=== PATIENT | male | born 1950 | race Caucasian/White ===

== ENCOUNTER 2020-02-23 08:46 | Inpatient (IN) ==
[2020-02-23] MEDS ORDERED: Tdap (Boostrix) Vaccine 0.5 ML SYRINGE IM ONE (09:01)
[2020-02-23] MEDS ORDERED: Lidocaine/EPI 1:100k 1% 30 ML VIAL INFILT ONE (12:05)
[2020-02-23 15:28] LABS: Basophils % 0.2 %; Hematocrit 36.9 % (37.5-50.1); Hemoglobin 11.3 g/dL (12.9-16.9); Immature Granulocytes % 0.3 % (0-4); Lymphocytes # 0.9 K/mcL (0.6-4.6); Lymphocytes % 8.1 %; Mean Corpuscular HGB Conc 30.6 g/dL (31.6-35.5); Mean Corpuscular Volume 88.1 fL (83.0-100.0); Mean Platelet Volume 9.3 fL (9.4-12.4); Monocytes # 1.1 K/mcL (0.0-1.3); Monocytes % 9.3 %; Neutrophils # 9.4 K/mcL (1.6-8.9); Platelet Count 394 K/mcL (140-400); Red Blood Count 4.19 M/mcL (4.19-5.50); Segmented Neutrophils % 82.1 %; White Blood Count 11.4 K/mcL (4.3-11.1)
[2020-02-23 15:46] LABS: Calcium 9.2 mg/dL (8.6-10.3); Potassium 3.9 mEq/L (3.5-5.1)
[2020-02-23] MEDS ORDERED: CeFAZolin 2 GM/120 ML BAG IVPB ONE (16:05)
[2020-02-23 16:23] LABS: Albumin 4.1 g/dL (3.5-5.7); Albumin/Globulin Ratio 1.5 (1.1-2.2); Bilirubin,Direct 0.1 mg/dL (0.0-0.2); Bilirubin,Indirect 0.6 mg/dL (0.0-1.0); Bilirubin,Total 0.7 mg/dL (0.3-1.0); Globulin 2.8 g/dL (2.4-3.5); Total Protein 6.9 g/dL (6.4-8.9)
[2020-02-23] MEDS: 0.9 % Sodium Chloride 1,000 ML IVC SCH (17:32)
[2020-02-23] MEDS ORDERED: Acetaminophen 325 MG TABLET PO ONE (23:13)
[2020-02-24] MEDS ORDERED: Acetaminophen 325 MG TABLET PO PRN (01:10)
[2020-02-24] MEDS ORDERED: Ondansetron 4 MG/2 ML VIAL IVP PRN (01:10)
[2020-02-24] MEDS ORDERED: Naloxone 0.4 MG/ML INJ IVP PRN (01:10)
[2020-02-24] MEDS: Famotidine 20 MG TABLET PO SCH ×2 (01:41→08:36)
[2020-02-24] MEDS: 0.9 % Sodium Chloride 1,000 ML IVC SCH ×2 (04:13→21:36)
[2020-02-24 07:37] LABS: Hematocrit 31.4 % (37.5-50.1); Mean Corpuscular HGB Conc 30.9 g/dL (31.6-35.5); Mean Corpuscular Hemoglobin 26.9 pg (28.0-33.3); Mean Platelet Volume 9.5 fL (9.4-12.4); Platelet Count 322 K/mcL (140-400); Red Blood Count 3.61 M/mcL (4.19-5.50); Red Cell Distribution Width 20.8 % (11.5-14.5); White Blood Count 9.1 K/mcL (4.3-11.1)
[2020-02-24 07:46] LABS: Hemoglobin 9.7 g/dL (12.9-16.9)
[2020-02-24 07:52] LABS: Calcium 8.1 mg/dL (8.6-10.3); Magnesium 1.3 mg/dL (1.6-2.6); Potassium 3.7 mEq/L (3.5-5.1)
[2020-02-24] MEDS: clonazePAM 0.5 MG TABLET PO SCH (08:34)
[2020-02-24] MEDS: Loratadine 10 MG TABLET PO SCH (08:36)
[2020-02-24] MEDS ORDERED: Metoprolol XL (24 HR) Succ 25 MG TAB.ER.24H PO SCH (09:00)
[2020-02-24] MEDS ORDERED: lisinopriL 20 MG TABLET PO SCH (09:00)
[2020-02-24 10:54] LABS: Amorphous Sediment,Urine Few per hpf (None-Few); Bilirubin,Urine Negative (Negative); Blood,Urine Negative (Negative); Calcium Oxalate Crystals,Urine Present; Clarity,Urine Turbid (Clear); Color,Urine Yellow (Yellow); Glucose,Urine (UA) Normal (Normal); Hyaline Casts,Urine Many per lpf (None Seen); Ketones,Urine 40 mg/dL (Negative); Leukocyte Esterase,Urine Negative (Negative); Mucus,Urine Few per lpf (None-Few); Nitrite,Urine Negative (Negative); PH,Urine 5.5 pH Units (5.0-8.0); Protein,Urine 50 mg/dL (Neg-Trace); Specific Gravity,Urine > 1.030 (1.010-1.025); Sperm,Urine Present (None Seen); Squamous Epithelial Cell,Urine Few per hpf (None-Few); Urobilinogen,Urine Normal (Normal)
[2020-02-24 15:01] LABS: Basophils % 0.3 %; Eosinophils % 0.1 %; Hematocrit 32.3 % (37.5-50.1); Hemoglobin 9.9 g/dL (12.9-16.9); Immature Granulocytes % 0.3 % (0-4); Lymphocytes # 0.8 K/mcL (0.6-4.6); Lymphocytes % 9.8 %; Mean Corpuscular HGB Conc 30.7 g/dL (31.6-35.5); Mean Corpuscular Hemoglobin 26.9 pg (28.0-33.3); Mean Corpuscular Volume 87.8 fL (83.0-100.0); Mean Platelet Volume 9.5 fL (9.4-12.4); Monocytes # 1.1 K/mcL (0.0-1.3); Monocytes % 13.7 %; Neutrophils # 5.9 K/mcL (1.6-8.9); Platelet Count 321 K/mcL (140-400); Red Blood Count 3.68 M/mcL (4.19-5.50); Segmented Neutrophils % 75.8 %; White Blood Count 7.7 K/mcL (4.3-11.1)
[2020-02-24 15:29] LABS: % Iron Saturation 2 % (20-55); Alanine Aminotransferase 6 Units/L (7-52); Albumin 3.5 g/dL (3.5-5.7); Albumin/Globulin Ratio 1.3 (1.1-2.2); Alkaline Phosphatase 44 Units/L (34-104); Aspartate Amino Transferase 22 Units/L (13-39); BUN/Creatinine Ratio 20 (6-26); Bilirubin,Total 1.1 mg/dL (0.3-1.0); Blood Urea Nitrogen 27 mg/dL (8-23); Calcium 8.5 mg/dL (8.6-10.3); Carbon Dioxide 25 mEq/L (23-29); Chloride 96 mEq/L (98-107); Globulin 2.6 g/dL (2.4-3.5); Glucose 112 mg/dL (70-105); Iron 10 mcg/dL (65-175); Osmolality,Calculated 276 (280-300); Potassium 3.7 mEq/L (3.5-5.1); Sodium 130 mEq/L (136-145); Total Protein 6.1 g/dL (6.4-8.9); Transferrin 300 mg/dL (203-362); eGFR For African Americans > 60 (> 60); eGFR For Non-African Americans 53 (> 60)
[2020-02-24 15:46] LABS: Folate 12.2 ng/mL (3.0-16.0)
[2020-02-24] MEDS: Iron Sucrose Complex 200 MG in 0.9 % Sodium Chloride 100 ML IVPB SCH (18:24)
[2020-02-24] MEDS: Simethicone 80 MG TAB.CHEW PO PRN (21:13)
[2020-02-25] MEDS ORDERED: Famotidine 20 MG TABLET PO SCH (09:00)
[2020-02-25] MEDS: clonazePAM 0.5 MG TABLET PO SCH (10:31)
[2020-02-25] MEDS: Cyanocobalamin (B-12) 1,000 MCG TABLET PO SCH (10:31)
[2020-02-25] MEDS: Loratadine 10 MG TABLET PO SCH (10:31)
[2020-02-25 11:16] LABS: Hemoglobin 8.7 g/dL (12.9-16.9); Mean Corpuscular HGB Conc 31.1 g/dL (31.6-35.5); Mean Corpuscular Hemoglobin 27.4 pg (28.0-33.3); Mean Corpuscular Volume 88.3 fL (83.0-100.0); Mean Platelet Volume 9.7 fL (9.4-12.4); Platelet Count 284 K/mcL (140-400); Red Blood Count 3.17 M/mcL (4.19-5.50); Red Cell Distribution Width 20.7 % (11.5-14.5); White Blood Count 6.5 K/mcL (4.3-11.1)
[2020-02-25 11:33] LABS: BUN/Creatinine Ratio 22 (6-26); Blood Urea Nitrogen 18 mg/dL (8-23); Calcium 8.2 mg/dL (8.6-10.3); Carbon Dioxide 24 mEq/L (23-29); Chloride 98 mEq/L (98-107); Creatine Kinase 488 Units/L (30-223); Glucose 125 mg/dL (70-105); Magnesium 1.8 mg/dL (1.6-2.6); Osmolality,Calculated 273 (280-300); Potassium 3.4 mEq/L (3.5-5.1); Sodium 130 mEq/L (136-145); eGFR For African Americans > 60 (> 60); eGFR For Non-African Americans > 60 (> 60)
[2020-02-25] MEDS: 0.9 % Sodium Chloride 1,000 ML IVC SCH (12:19)
[2020-02-25] MEDS: Pantoprazole 40 MG VIAL IVP SCH ×2 (12:53→18:13)
[2020-02-25] MEDS: Iron Sucrose Complex 200 MG in 0.9 % Sodium Chloride 100 ML IVPB SCH (15:34)
[2020-02-26] MEDS: 0.9 % Sodium Chloride 1,000 ML IVC SCH (05:09)
[2020-02-26] MEDS: Pantoprazole 40 MG VIAL IVP SCH ×2 (05:10→17:35)
[2020-02-26] MEDS: clonazePAM 0.5 MG TABLET PO SCH (08:48)
[2020-02-26] MEDS: Cyanocobalamin (B-12) 1,000 MCG TABLET PO SCH (08:48)
[2020-02-26] MEDS: Loratadine 10 MG TABLET PO SCH (08:48)
[2020-02-26 10:49] LABS: Basophils % 0.3 %; Eosinophils % 0.7 %; Hematocrit 32.8 % (37.5-50.1); Hemoglobin 9.8 g/dL (12.9-16.9); Immature Granulocytes % 0.3 % (0-4); Lymphocytes % 16.3 %; Mean Corpuscular HGB Conc 29.9 g/dL (31.6-35.5); Mean Corpuscular Hemoglobin 27.1 pg (28.0-33.3); Mean Corpuscular Volume 90.9 fL (83.0-100.0); Mean Platelet Volume 9.6 fL (9.4-12.4); Monocytes # 0.8 K/mcL (0.0-1.3); Monocytes % 12.6 %; Neutrophils # 4.2 K/mcL (1.6-8.9); Platelet Count 312 K/mcL (140-400); Red Blood Count 3.61 M/mcL (4.19-5.50); Red Cell Distribution Width 20.6 % (11.5-14.5); Segmented Neutrophils % 69.8 %
[2020-02-26 11:10] LABS: BUN/Creatinine Ratio 12 (6-26); Blood Urea Nitrogen 9 mg/dL (8-23); Calcium 8.5 mg/dL (8.6-10.3); Carbon Dioxide 22 mEq/L (23-29); Chloride 103 mEq/L (98-107); Glucose 114 mg/dL (70-105); Magnesium 1.6 mg/dL (1.6-2.6); Osmolality,Calculated 276 (280-300); Potassium 3.6 mEq/L (3.5-5.1); Sodium 133 mEq/L (136-145); eGFR For African Americans > 60 (> 60); eGFR For Non-African Americans > 60 (> 60)
[2020-02-26] MEDS: Iron Sucrose Complex 200 MG in 0.9 % Sodium Chloride 100 ML IVPB SCH (17:09)
[2020-02-27] MEDS: Simethicone 80 MG TAB.CHEW PO PRN (05:04)
[2020-02-27] MEDS: Pantoprazole 40 MG VIAL IVP SCH (05:04)
[2020-02-27 08:53] LABS: Basophils % 0.6 %; Eosinophils % 0.4 %; Hemoglobin 8.6 g/dL (12.9-16.9); Immature Granulocytes % 0.4 % (0-4); Lymphocytes # 0.8 K/mcL (0.6-4.6); Lymphocytes % 14.3 %; Mean Corpuscular HGB Conc 30.7 g/dL (31.6-35.5); Mean Corpuscular Hemoglobin 27.3 pg (28.0-33.3); Mean Corpuscular Volume 88.9 fL (83.0-100.0); Mean Platelet Volume 9.5 fL (9.4-12.4); Neutrophils # 3.6 K/mcL (1.6-8.9); Platelet Count 357 K/mcL (140-400); Red Blood Count 3.15 M/mcL (4.19-5.50); Red Cell Distribution Width 20.4 % (11.5-14.5); Segmented Neutrophils % 66.3 %; White Blood Count 5.4 K/mcL (4.3-11.1)
[2020-02-27] MEDS: clonazePAM 0.5 MG TABLET PO SCH (09:26)
[2020-02-27] MEDS: Cyanocobalamin (B-12) 1,000 MCG TABLET PO SCH (09:26)
[2020-02-27] MEDS: Loratadine 10 MG TABLET PO SCH (09:26)
[2020-02-27 14:28] LABS: Adenovirus Not Detected (Not Detect); Coronavirus 229E Not Detected (Not Detect); Coronavirus HKU1 Not Detected (Not Detect); Coronavirus NL63 Not Detected (Not Detect); Coronavirus OC43 Not Detected (Not Detect); SARS-CoV-2 Not Detected (Not Detect)
[2020-02-27 14:29] LABS: Bordetella Pertussis Not Detected (Not Detect); Chlamydophila pneumoniae Not Detected (Not Detect); Human Metapneumovirus Not Detected (Not Detect); Human Rhinovirus/Enterovirus Not Detected (Not Detect); Influenza A Subtype 2009 H1 Not Detected (Not Detect); Influenza B Not Detected (Not Detect); Mycoplasma pneumoniae Not Detected (Not Detect); Parainfluenza Virus 1 Not Detected (Not Detect); Parainfluenza Virus 2 Not Detected (Not Detect); Parainfluenza Virus 3 Not Detected (Not Detect); Parainfluenza Virus 4 Not Detected (Not Detect); Respiratory Syncytial Virus Not Detected (Not Detect)
[2020-02-27] MEDS: Iron Sucrose Complex 200 MG in 0.9 % Sodium Chloride 100 ML IVPB SCH (16:47)
[2020-02-27] MEDS: Metoprolol XL (24 HR) Succ 25 MG TAB.ER.24H PO SCH (20:10)
[2020-02-28 06:49] VITALS: BP 121/73
[2020-02-28] MEDS ORDERED: lisinopriL 20 MG TABLET PO SCH (09:00)
[2020-02-28] MEDS: Metoprolol XL (24 HR) Succ 25 MG TAB.ER.24H PO SCH (09:19)
[2020-02-28] MEDS: clonazePAM 0.5 MG TABLET PO SCH (09:19)
[2020-02-28] MEDS: Cyanocobalamin (B-12) 1,000 MCG TABLET PO SCH (09:19)
[2020-02-28] MEDS: Loratadine 10 MG TABLET PO SCH (09:19)
[2020-02-28 09:38] LABS: Hematocrit 30.8 % (37.5-50.1); Hemoglobin 9.4 g/dL (12.9-16.9)
== END 2020-02-28 11:45 | DRG 563 ==
LOC: EMEROOARM 08:46 → 3NENU 08:46 → SUATTDRO 20:36 → 3NENU 21:11
PROVIDERS: ADMIT Student in an Organized Health Care Education/Training Program; ATTEND Internal Medicine